=== PATIENT | female | born 1950 | race Caucasian/White ===

== ENCOUNTER 2016-11-09 07:52 | Day surgery (SDC) | payer OTHER ==
[2016-11-09] MEDS ORDERED: Sodium Chloride 0.9% 1,000 ML IV SCH (08:30)
[2016-11-09] MEDS ORDERED: Propofol 200 MG/20 ML SDV ONE (09:39)
[2016-11-09] MEDS ORDERED: Midazolam 1 MG/ML 2 ML SDV ONE (09:39)
[2016-11-09] MEDS ORDERED: fentaNYL 100 MCG/2 ML SDV ONE (09:39)
--- NOTE | 2016-11-09 15:21 | OR ---
DATE OF PROCEDURE: 11/09/2016 PROCEDURES: 1. Esophagogastroduodenoscopy. 2. Colonoscopy. FINDINGS: 1. Normal EGD. 2. A 5 mm lesion proximally in the sigmoid colon, completely removed by using cold biopsy forceps. COMPLICATIONS: None. MERCERIZING RANGE FEEDER: None. ANESTHETIC: MAC. RISKS: Risks, benefits, alternatives, and limitations including, but not limited to infection, bleeding, and perforation were explained the patient, and she wished to proceed. PROCEDURE IN DETAIL: The patient was placed in left lateral decubitus position. EGD scope was introduced and advanced atraumatically to the second part of the duodenum. The scope was brought back and retroflexed. No gastritis or ulceration. At the junction, there were no evidence of reflux disease. The esophagus was normal. Colonoscopy was then performed next. A digital rectal exam was performed without abnormality. The scope was then introduced and advanced atraumatically to the ileocecal valve. The scope was brought back to the ascending, transverse, descending colon, and retroflexed. No evidence of old or new blood. The patient had diverticulosis, which was described as very mild with only a few tics noted. In the sigmoid colon, there was a small lesion. This is either a forming tic or a polyp. Nonetheless, this was removed using cold biopsy forceps. No abnormalities when retroflexed. The patient tolerated the procedure well. Ezio Hogue MD /[id number]
== END 2016-11-09 11:04 | disposition home or self-care (01) ==
LOC: JP.SDS 07:52
PROVIDERS: ATTEND Surgery
DX: Z12.11 Encounter for screening for malignant neoplasm of colon (principal); K63.5 Polyp of colon; K57.30 Diverticulosis of large intestine without perforation or abscess without bleeding; K21.9 Gastro-esophageal reflux disease without esophagitis; E78.00 Pure hypercholesterolemia, unspecified; Z90.710 Acquired absence of both cervix and uterus
CPT/HCPCS: 43235; 45380; J2250; J2704; J3010; J7040; 88305

== ENCOUNTER 2024-11-27 06:23 | Day surgery (SDC) | payer MEDICARE, OTHER ==
[2024-11-27] MEDS: Lactated Ringers 1,000 ML IV SCH (06:58)
[2024-11-27] MEDS ORDERED: Propofol 200 MG/20 ML SDV ONE (07:20)
[2024-11-27] MEDS ORDERED: fentaNYL 100 MCG/2 ML SDV ONE (07:20)
== END 2024-11-27 08:52 | disposition home or self-care (01) ==
LOC: JP.SDS 06:23
PROVIDERS: ATTEND Surgery
DX: Z12.11 Encounter for screening for malignant neoplasm of colon (principal); K57.30 Diverticulosis of large intestine without perforation or abscess without bleeding; Z88.8 Allergy status to other drugs, medicaments and biological substances; Z86.0100 Personal history of colon polyps, unspecified
CPT/HCPCS: G0121; J2704; J3010; J7120